=== PATIENT | female | born 1970 | race Caucasian/White ===

== ENCOUNTER → 2017-02-08 | Outpatient (CLI) | payer BC | END | disposition home or self-care (01) | LOC: CFH 10:52 | PROVIDERS: ATTEND Genetic Counselor, MS | DX: Z12.31 Encounter for screening mammogram for malignant neoplasm of breast (principal) | CPT/HCPCS: G0202 ==

== ENCOUNTER → 2017-11-20 | Outpatient (CLI) | payer OTHER | LOC: CVU 07:06 | PROVIDERS: ATTEND Genetic Counselor, MS | DX: I87.2 Venous insufficiency (chronic) (peripheral) (principal) | CPT/HCPCS: 93970 ==